=== PATIENT | male | born 1970 | race American Indian/Alaskan Native ===

== ENCOUNTER 2017-06-02 04:30 | Emergency (ER) | payer OTHER ==
[2017-06-02] MEDS ORDERED: TYLENOL PO ONE (04:51)
[2017-06-02] MEDS ORDERED: TYLENOL ONE (04:55)
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
[2017-06-02] MEDS ORDERED: ULTRAM PO ONE (09:13)
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
[2017-06-02] MEDS ORDERED: TETRACAINE 0.5% OU ONE (09:43)
[2017-06-02] MEDS ORDERED: FUL-GLO OP ONE (10:21)
[2017-06-02] MEDS ORDERED: BSS ONE (10:21)
[2017-06-02 10:27] VITALS: BP 120/87
== END 2017-06-02 10:37 | disposition home or self-care (01) ==
LOC: ED 04:30
DX: S00.12XA Contusion of left eyelid and periocular area, initial encounter (principal); M54.5 Low back pain; Y09 Assault by unspecified means; Y93.89 Activity, other specified; Y92.89 Other specified places as the place of occurrence of the external cause; Y99.8 Other external cause status
CPT/HCPCS: 70200; 70450; 72100; 99284